=== PATIENT | female | born 1950 | race African-American/Black ===

== ENCOUNTER 2017-12-16 09:14 | Inpatient (IN) ==
[2017-12-16] MEDS ORDERED: ALUM/MAG/SIMETH/LIDO VISC 1:1 30 ML BOTTLE PO STA (10:38)
[2017-12-16 10:51] LABS: Basophils % 0.4 % (0.0-0.8); Eosinophils # 0.3 10*3/uL (0.0-0.87); Eosinophils % 4.3 % (0.00-10.9); Hematocrit 29.5 VOL% (35.7-47.0); Hemoglobin 8.8 GM/DL (12.0-16.0); Immature Granulocytes % 0.3 %; Immature Granulocytes Absolute 0.02 #; Lymphocytes % 26.2 % (21.3-54.2); Mean Corpuscular HGB Conc 29.8 GM/DL (32-36); Mean Corpuscular Hemoglobin 23 PG (27-34); Mean Corpuscular Volume 76.8 FL (87-102); Mean Platelet Volume 11.5 FL (9.6-12.0); Monocytes # 0.6 10*3/uL (0.11-0.8); Monocytes % 7.8 % (1.7-12.7); Neutrophils # 4.6 10*3/uL (1.4-7.4); Platelet Count 267 T/CUMM (130-400); Red Blood Count 3.84 MC/CUMM (3.8-5.5); Red Cell Distribution Width 15.3 % (9.3-17.3); White Blood Count 7.5 T/CUMM (4-12)
[2017-12-16 10:58] LABS: PT Patient Result 10.7 SECS; Partial Thromboplastin Time 28.7 SECS (0-40)
[2017-12-16 11:20] LABS: Alanine Aminotransferase 17 U/L (13-56); Albumin 3.1 G/DL (3.4-5.0); Alkaline Phosphatase 69 U/L (45-117); Aspartate Amino Transferase 20 U/L (0-37); Blood Urea Nitrogen 34 MG/DL (7-18); Calcium 10.3 MG/DL (8.5-10.1); Glucose 146 MG/DL (74-106); Osmolality,Calculated 285.7 MOS/KG (273-304); Potassium 4.4 MMOL/L (3.5-5.1); Sodium 138 MMOL/L (136-145); Total Protein 7.7 G/DL (6.4-8.3)
[2017-12-16 11:22] LABS: Troponin I Only 0.054 NG/ML (0.00-0.045)
[2017-12-16] MEDS ORDERED: FUROSEMIDE 40 MG/4 ML VIAL IV STA (12:19)
[2017-12-16] MEDS ORDERED: ASPIRIN 325 MG TABLET PO STA (12:19)
[2017-12-16] MEDS ORDERED: ENOXAPARIN 100 MG/ML SYRINGE SUBCUT STA (12:19)
[2017-12-16] MEDS ORDERED: ACETAMINOPHEN 325 MG TABLET PO PRN (12:34)
[2017-12-16] MEDS ORDERED: ONDANSETRON 4 MG/2 ML VIAL IV PRN (12:34)
[2017-12-16] MEDS ORDERED: TORSEMIDE 20 MG TABLET PO PRN (14:41)
[2017-12-16 15:20] LABS: Ferritin 133.6 ng/ml (8-252)
[2017-12-16] MEDS: GLIMEPIRIDE 4 MG TABLET PO SCH (16:29)
[2017-12-16] MEDS: PRAVASTATIN 40 MG TABLET PO SCH (16:29)
[2017-12-16] MEDS ORDERED: PANTOPRAZOLE 40 MG TABLET PO ONE (22:00)
[2017-12-16] MEDS: DOCUSATE SODIUM 100 MG CAPSULE PO SCH (22:18)
[2017-12-16] MEDS: ALLOPURINOL 100 MG TABLET PO SCH (22:18)
[2017-12-16] MEDS: ALUMINUM/MAGNES/SIMETH MAX STR 30 ML UDCUP PO PRN (22:18)
[2017-12-17 05:06] LABS: Basophils % 0.6 % (0.0-0.8); Eosinophils # 0.3 10*3/uL (0.0-0.87); Eosinophils % 4.7 % (0.00-10.9); Hematocrit 29.5 VOL% (35.7-47.0); Immature Granulocytes % 0.3 %; Immature Granulocytes Absolute 0.02 #; Lymphocytes # 2.6 10*3/uL (1.4-4.0); Lymphocytes % 39.8 % (21.3-54.2); Mean Corpuscular HGB Conc 30.5 GM/DL (32-36); Mean Corpuscular Hemoglobin 23 PG (27-34); Mean Corpuscular Volume 75.4 FL (87-102); Mean Platelet Volume 11.7 FL (9.6-12.0); Monocytes # 0.7 10*3/uL (0.11-0.8); Neutrophils # 2.9 10*3/uL (1.4-7.4); Neutrophils % 43.6 % (38.7-73.9); Platelet Count 256 T/CUMM (130-400); Red Blood Count 3.91 MC/CUMM (3.8-5.5); Red Cell Distribution Width 14.9 % (9.3-17.3); White Blood Count 6.6 T/CUMM (4-12)
[2017-12-17 05:37] LABS: Osmolality,Calculated 287.4 MOS/KG (273-304); Potassium 4.2 MMOL/L (3.5-5.1); Risk Ratio 2.54; VLDL CHOLESTEROL 19.8 MG/DL
[2017-12-17] MEDS: ALUMINUM/MAGNES/SIMETH MAX STR 30 ML UDCUP PO PRN (08:55)
[2017-12-17] MEDS: GLIMEPIRIDE 4 MG TABLET PO SCH ×2 (08:55→16:25)
[2017-12-17] MEDS: INDAPAMIDE 2.5 MG TABLET PO SCH (08:56)
[2017-12-17] MEDS: PIOGLITAZONE 15 MG TABLET PO SCH (08:56)
[2017-12-17] MEDS: sitaGLIPtin 25 MG TABLET PO SCH (08:57)
[2017-12-17] MEDS: VALSARTAN/HCTZ 80-12.5 MG TABLET PO SCH (08:57)
[2017-12-17] MEDS: DOCUSATE SODIUM 100 MG CAPSULE PO SCH ×2 (08:57→21:34)
[2017-12-17] MEDS: MULTIVITAMIN (CENTRUM) TABLET PO SCH (08:57)
[2017-12-17] MEDS: ALLOPURINOL 100 MG TABLET PO SCH ×2 (08:58→21:34)
[2017-12-17] MEDS: PANTOPRAZOLE 40 MG TABLET PO SCH (08:58)
[2017-12-17] MEDS: ASPIRIN EC 81 MG TABLET PO SCH (15:56)
[2017-12-17] MEDS: PRAVASTATIN 40 MG TABLET PO SCH (15:56)
[2017-12-17] MEDS: CARVEDILOL 6.25 MG TABLET PO SCH (21:34)
[2017-12-18] MEDS: PIOGLITAZONE 15 MG TABLET PO SCH (08:55)
[2017-12-18] MEDS: DOCUSATE SODIUM 100 MG CAPSULE PO SCH ×2 (08:56→23:58)
[2017-12-18] MEDS: sitaGLIPtin 25 MG TABLET PO SCH (08:56)
[2017-12-18] MEDS: PANTOPRAZOLE 40 MG TABLET PO SCH (08:56)
[2017-12-18] MEDS: VALSARTAN/HCTZ 80-12.5 MG TABLET PO SCH (08:56)
[2017-12-18] MEDS: INDAPAMIDE 2.5 MG TABLET PO SCH (08:57)
[2017-12-18] MEDS: ALLOPURINOL 100 MG TABLET PO SCH ×2 (08:57→23:57)
[2017-12-18] MEDS: GLIMEPIRIDE 4 MG TABLET PO SCH ×2 (08:57→16:35)
[2017-12-18] MEDS: MULTIVITAMIN (CENTRUM) TABLET PO SCH (08:57)
[2017-12-18] MEDS: ASPIRIN EC 81 MG TABLET PO SCH (08:57)
[2017-12-18] MEDS: CARVEDILOL 6.25 MG TABLET PO SCH ×2 (08:57→16:35)
[2017-12-18] MEDS ORDERED: POTASSIUM CHLORIDE RIDER 10 MEQ in PREMIX 1 EACH IV PRN (14:59)
[2017-12-18] MEDS ORDERED: MAGNESIUM SULF RIDER 2 GM in PREMIX 1 EACH IV PRN (14:59)
[2017-12-18] MEDS: PRAVASTATIN 40 MG TABLET PO SCH (16:35)
[2017-12-18 17:02] LABS: PT Patient Result 10.5 SECS
[2017-12-19] MEDS ORDERED: SODIUM CHLORIDE 0.45% 1,000 ML IV SCH (06:00)
[2017-12-19 06:21] LABS: Basophils % 0.5 % (0.0-0.8); Eosinophils # 0.3 10*3/uL (0.0-0.87); Eosinophils % 4.3 % (0.00-10.9); Hematocrit 29.5 VOL% (35.7-47.0); Immature Granulocytes % 0.4 %; Immature Granulocytes Absolute 0.03 #; Lymphocytes # 2.5 10*3/uL (1.4-4.0); Lymphocytes % 33.5 % (21.3-54.2); Mean Corpuscular HGB Conc 30.5 GM/DL (32-36); Mean Corpuscular Hemoglobin 23 PG (27-34); Mean Corpuscular Volume 75.4 FL (87-102); Mean Platelet Volume 11.4 FL (9.6-12.0); Monocytes # 0.7 10*3/uL (0.11-0.8); Monocytes % 9.9 % (1.7-12.7); Neutrophils # 3.8 10*3/uL (1.4-7.4); Neutrophils % 51.4 % (38.7-73.9); Platelet Count 268 T/CUMM (130-400); Red Blood Count 3.91 MC/CUMM (3.8-5.5); Red Cell Distribution Width 14.9 % (9.3-17.3); White Blood Count 7.4 T/CUMM (4-12)
[2017-12-19 06:44] LABS: Calcium 9.8 MG/DL (8.5-10.1); Osmolality,Calculated 281.7 MOS/KG (273-304); Potassium 4.2 MMOL/L (3.5-5.1)
[2017-12-19] MEDS ORDERED: HEPARIN/NACL 0.9% 2 UNITS/ML 1,000 ML IV ONE (06:44)
[2017-12-19] MEDS ORDERED: DIAZEPAM 5 MG TABLET PO ONE ×2 (07:00→08:00)
[2017-12-19] MEDS ORDERED: diphenhydrAMINE CAP 25 MG CAPSULE PO ONE ×2 (07:00→08:00)
[2017-12-19] MEDS ORDERED: NITROGLYCERIN DRIP 50 MG/250 ML BOTTLE IV ONE (07:18)
[2017-12-19] MEDS ORDERED: VERAPAMIL 5 MG/2 ML VIAL ONE (07:19)
[2017-12-19] MEDS ORDERED: MIDAZOLAM 2 MG/2 ML VIAL ONE ×2 (07:19→07:34)
[2017-12-19] MEDS ORDERED: fentaNYL 100 MCG/2 ML VIAL ONE (07:19)
[2017-12-19] MEDS ORDERED: diphenhydrAMINE 50 MG/1 ML VIAL ONE (07:35)
[2017-12-19] MEDS ORDERED: HEPARIN 5,000 UNIT/1 ML VIAL ONE (07:39)
[2017-12-19] MEDS: GLIMEPIRIDE 4 MG TABLET PO SCH ×2 (10:55→16:12)
[2017-12-19] MEDS: ALLOPURINOL 100 MG TABLET PO SCH (10:56)
[2017-12-19] MEDS: CARVEDILOL 6.25 MG TABLET PO SCH ×2 (10:56→16:12)
[2017-12-19] MEDS: sitaGLIPtin 25 MG TABLET PO SCH (10:56)
[2017-12-19] MEDS: ASPIRIN EC 81 MG TABLET PO SCH (10:56)
[2017-12-19] MEDS: INDAPAMIDE 2.5 MG TABLET PO SCH (10:56)
[2017-12-19] MEDS: PIOGLITAZONE 15 MG TABLET PO SCH (10:56)
[2017-12-19] MEDS: MULTIVITAMIN (CENTRUM) TABLET PO SCH (10:56)
[2017-12-19] MEDS: DOCUSATE SODIUM 100 MG CAPSULE PO SCH (10:57)
[2017-12-19] MEDS: VALSARTAN/HCTZ 80-12.5 MG TABLET PO SCH (10:57)
[2017-12-19] MEDS: PANTOPRAZOLE 40 MG TABLET PO SCH (10:57)
[2017-12-19 15:39] VITALS: BP 145/71
[2017-12-19] MEDS: PRAVASTATIN 40 MG TABLET PO SCH (16:12)
== END 2017-12-19 18:19 | disposition home or self-care (01) | DRG 286 ==
LOC: N.EDINP 09:14 → N.ED 09:14 → N.EDINP 13:41 → N.2E 13:58
PROVIDERS: ADMIT Family Medicine; ATTEND Family Medicine
PROC: CLCCHCL (ICD-10-PCS; 2017-12-19 07:45)

== ENCOUNTER 2021-12-09 14:26 | Observation (INO) ==
[2021-12-09] MEDS ORDERED: ASPIRIN 325 MG TABLET PO STA (15:14)
[2021-12-09] MEDS ORDERED: ONDANSETRON 4 MG/2 ML VIAL IV STA (15:14)
[2021-12-09] MEDS ORDERED: MORPHINE 2 MG/1 ML SYRINGE IV STA (15:14)
[2021-12-09] MEDS ORDERED: NITROGLYCERIN 2% OINT 1 INCH/GM PACK TOP STA (15:14)
[2021-12-09] MEDS ORDERED: ALUM/MAG/SIMETH/LIDO VISC 1:1 30 ML BOTTLE PO STA (15:14)
[2021-12-09 15:41] LABS: Albumin 3.7 G/DL (3.4-5.0); Bilirubin,Total 0.6 MG/DL (0.20-1.00); Calcium 10.6 MG/DL (8.5-10.1); Osmolality,Calculated 290.7 MOS/KG (273-304); Potassium 4.2 MMOL/L (3.5-5.1); Total Protein 7.9 G/DL (6.4-8.2)
[2021-12-09] MEDS ORDERED: NITROGLYCERIN SL 0.4 MG TABLET SL PRN (16:17)
[2021-12-09 16:23] LABS: Basophils % 0.2 % (0.0-0.8); Eosinophils % 0.1 % (0.00-10.9); Hematocrit 34.5 VOL% (35.7-47.0); Hemoglobin 10.4 GM/DL (12.0-16.0); Immature Granulocytes % 0.5 %; Immature Granulocytes Absolute 0.08 #; Mean Corpuscular HGB Conc 30.1 GM/DL (32-36); Monocytes # 1.1 10*3/uL (0.11-0.8); Monocytes % 7.1 % (1.7-12.7); Neutrophils % 79.1 % (38.7-73.9); Platelet Count 243 T/CUMM (130-400); Red Blood Count 4.54 MC/CUMM (3.8-5.5); Red Cell Distribution Width 15.9 % (9.3-17.3); White Blood Count 15.6 T/CUMM (4-12)
[2021-12-09] MEDS ORDERED: PANTOPRAZOLE 40 MG VIAL IV STA (16:24)
[2021-12-09 16:36] LABS: Barbiturates Screen,Urine Negative (Negative); Benzodiazepines Screen,Urine Negative (Negative); Cannabinoid Screen,Urine Negative (Negative); Opiate Screen,Urine Negative (Negative); Phencyclidine Screen,Urine Negative (Negative)
[2021-12-09 16:43] LABS: PT Patient Result 10.8 SECS (10.5-12.0); Partial Thromboplastin Time 24.1 SECS (23.8-32.1)
[2021-12-09] MEDS: carvediloL 12.5 MG TABLET PO SCH (17:06)
[2021-12-09] MEDS ORDERED: clonazePAM 0.5 MG TABLET PO PRN (17:07)
[2021-12-09] MEDS ORDERED: ONDANSETRON 4 MG/2 ML VIAL IV PRN (17:18)
[2021-12-09] MEDS: GLIMEPIRIDE 4 MG TABLET PO SCH (17:47)
[2021-12-09] MEDS ORDERED: ENOXAPARIN 40 MG/0.4 ML SYRINGE ONE (17:51)
[2021-12-09] MEDS: ENOXAPARIN 30 MG/0.3 ML SYRINGE SUBCUT SCH (18:04)
[2021-12-09] MEDS: allopurinoL 100 MG TABLET PO SCH (21:08)
[2021-12-09] MEDS: ATORVASTATIN 40 MG TABLET PO SCH (21:08)
[2021-12-09] MEDS: DOCUSATE SODIUM 100 MG CAPSULE PO SCH (21:08)
[2021-12-09] MEDS: hydrALAZINE 25 MG TABLET PO SCH (21:08)
[2021-12-09] MEDS: INSULIN GLARGINE 100 UNIT/ML SUBCUT SCH (22:45)
[2021-12-10 04:50] LABS: Basophils % 0.1 % (0.0-0.8); Eosinophils % 0.2 % (0.00-10.9); Hemoglobin 9.4 GM/DL (12.0-16.0); Immature Granulocytes % 0.3 %; Immature Granulocytes Absolute 0.04 #; Lymphocytes # 2.5 10*3/uL (1.4-4.0); Lymphocytes % 17.9 % (21.3-54.2); Mean Corpuscular HGB Conc 30.3 GM/DL (32-36); Mean Corpuscular Volume 75.2 FL (87-102); Mean Platelet Volume 11.9 FL (9.6-12.0); Monocytes # 1.6 10*3/uL (0.11-0.8); Monocytes % 11.6 % (1.7-12.7); Neutrophils % 69.9 % (38.7-73.9); Platelet Count 231 T/CUMM (130-400); Red Blood Count 4.12 MC/CUMM (3.8-5.5); Red Cell Distribution Width 15.3 % (9.3-17.3); White Blood Count 13.9 T/CUMM (4-12)
[2021-12-10 05:20] LABS: Calcium 10.4 MG/DL (8.5-10.1)
[2021-12-10] MEDS ORDERED: PANTOPRAZOLE 40 MG TABLET PO SCH ×2 (09:00)
[2021-12-10] MEDS: ASPIRIN CHEW 81 MG TABLET PO SCH (09:29)
[2021-12-10] MEDS: DOCUSATE SODIUM 100 MG CAPSULE PO SCH ×2 (09:29→20:51)
[2021-12-10] MEDS: carvediloL 12.5 MG TABLET PO SCH ×4 (09:29→17:06)
[2021-12-10] MEDS: hydrALAZINE 25 MG TABLET PO SCH ×4 (09:29→20:51)
[2021-12-10] MEDS: MULTIVITAMIN (CENTRUM) TABLET PO SCH (09:29)
[2021-12-10] MEDS: ISOSORBIDE MONONITRATE 30 MG TABLET PO SCH (09:30)
[2021-12-10] MEDS: allopurinoL 100 MG TABLET PO SCH ×2 (09:31→20:51)
[2021-12-10] MEDS: ASCORBIC ACID 500 MG TABLET PO SCH (09:31)
[2021-12-10] MEDS: ACETAMINOPHEN 325 MG TABLET PO PRN ×2 (09:31→20:52)
[2021-12-10] MEDS: PANTOPRAZOLE 40 MG TABLET PO SCH ×2 (09:32→20:51)
[2021-12-10] MEDS: GLIMEPIRIDE 4 MG TABLET PO SCH ×2 (09:32→16:33)
[2021-12-10] MEDS: INSULIN LISPRO 100 UNIT/ML SUBCUT SCH ×3 (12:18→23:02)
[2021-12-10 14:38] LABS: Urine Appearance Clear (Clear); Urine Color Yellow (Yellow)
[2021-12-10 14:39] LABS: Bilirubin,Urine Negative (Negative); Blood, Urine Trace mg/dL (Negative); Glucose,Urine (UA) >1000 mg/dL (Negative); Ketones,Urine Negative (Negative); Nitrite,Urine Negative (Negative); Protein,Urine 30 mg/dL (Negative); Urine Urobilinogen 0.2 eU/dL (<2.0)
[2021-12-10 14:44] LABS: Bacteria,Urine Occasional /HPF (Few); Mucus,Urine Occasional /LPF (Occasional); RBC,Urine 5 /HPF (0-4); Squamous Epithelial Cell,Urine Occasional /HPF (0-10)
[2021-12-10] MEDS: ENOXAPARIN 30 MG/0.3 ML SYRINGE SUBCUT SCH (17:39)
[2021-12-10] MEDS: ATORVASTATIN 40 MG TABLET PO SCH (20:51)
[2021-12-10] MEDS: INSULIN GLARGINE 100 UNIT/ML SUBCUT SCH (23:02)
[2021-12-11 04:42] LABS: Basophils % 0.3 % (0.0-0.8); Eosinophils # 0.2 10*3/uL (0.0-0.87); Eosinophils % 1.6 % (0.00-10.9); Hematocrit 30.2 VOL% (35.7-47.0); Hemoglobin 9.1 GM/DL (12.0-16.0); Immature Granulocytes % 0.4 %; Immature Granulocytes Absolute 0.04 #; Lymphocytes # 2.1 10*3/uL (1.4-4.0); Lymphocytes % 19.6 % (21.3-54.2); Mean Corpuscular HGB Conc 30.1 GM/DL (32-36); Mean Corpuscular Volume 75.3 FL (87-102); Mean Platelet Volume 12.6 FL (9.6-12.0); Monocytes # 1.2 10*3/uL (0.11-0.8); Monocytes % 10.6 % (1.7-12.7); Neutrophils % 67.5 % (38.7-73.9); Platelet Count 229 T/CUMM (130-400); Red Blood Count 4.01 MC/CUMM (3.8-5.5); Red Cell Distribution Width 15.1 % (9.3-17.3); White Blood Count 10.8 T/CUMM (4-12)
[2021-12-11 05:12] LABS: Calcium 10.7 MG/DL (8.5-10.1); Osmolality,Calculated 279.4 MOS/KG (273-304)
[2021-12-11 05:23] LABS: Albumin 2.7 G/DL (3.4-5.0); Bilirubin,Total 0.5 MG/DL (0.20-1.00); Calcium 10.7 MG/DL (8.5-10.1); Osmolality,Calculated 279.4 MOS/KG (273-304); Potassium 3.9 MMOL/L (3.5-5.1); Total Protein 7.6 G/DL (6.4-8.2)
[2021-12-11] MEDS: carvediloL 12.5 MG TABLET PO SCH (08:12)
[2021-12-11] MEDS: GLIMEPIRIDE 4 MG TABLET PO SCH (08:12)
[2021-12-11] MEDS: INSULIN LISPRO 100 UNIT/ML SUBCUT SCH ×2 (08:13→11:45)
[2021-12-11 08:38] VITALS: BP 112/66
[2021-12-11] MEDS: MULTIVITAMIN (CENTRUM) TABLET PO SCH (09:14)
[2021-12-11] MEDS: DOCUSATE SODIUM 100 MG CAPSULE PO SCH (09:14)
[2021-12-11] MEDS: PANTOPRAZOLE 40 MG TABLET PO SCH (09:14)
[2021-12-11] MEDS: ASCORBIC ACID 500 MG TABLET PO SCH (09:14)
[2021-12-11] MEDS: ISOSORBIDE MONONITRATE 30 MG TABLET PO SCH (09:14)
[2021-12-11] MEDS: allopurinoL 100 MG TABLET PO SCH (09:14)
[2021-12-11] MEDS: ASPIRIN CHEW 81 MG TABLET PO SCH (09:14)
[2021-12-11] MEDS: hydrALAZINE 25 MG TABLET PO SCH (09:15)
== END 2021-12-11 11:42 | disposition home or self-care (01) ==
LOC: N.EDINP 14:26 → N.ED 14:26 → N.TELEN 18:55
PROVIDERS: ADMIT Family Medicine; ATTEND Family Medicine

== ENCOUNTER 2022-01-29 13:57 | Observation (INO) ==
[2022-01-29 14:25] LABS: Basophils # 0.1 10*3/uL (0.0-0.2); Basophils % 0.3 % (0.0-0.8); Eosinophils # 0.2 10*3/uL (0.0-0.87); Eosinophils % 1.3 % (0.00-10.9); Hematocrit 32.5 VOL% (35.7-47.0); Hemoglobin 10.1 GM/DL (12.0-16.0); Immature Granulocytes % 0.5 %; Immature Granulocytes Absolute 0.08 #; Lymphocytes # 2.1 10*3/uL (1.4-4.0); Lymphocytes % 11.9 % (21.3-54.2); Mean Corpuscular HGB Conc 31.1 GM/DL (32-36); Mean Corpuscular Volume 71.6 FL (87-102); Mean Platelet Volume 10.7 FL (9.6-12.0); Monocytes # 1.9 10*3/uL (0.11-0.8); Monocytes % 10.8 % (1.7-12.7); Neutrophils % 75.2 % (38.7-73.9); Platelet Count 341 T/CUMM (130-400); Red Blood Count 4.54 MC/CUMM (3.8-5.5); Red Cell Distribution Width 17.1 % (9.3-17.3); White Blood Count 17.5 T/CUMM (4-12)
[2022-01-29 14:45] LABS: Albumin 3.2 G/DL (3.4-5.0); Bilirubin,Total 0.4 MG/DL (0.20-1.00); Osmolality,Calculated 284.2 MOS/KG (273-304); Potassium 4.3 MMOL/L (3.5-5.1); Total Protein 7.3 G/DL (6.4-8.2)
[2022-01-29] MEDS ORDERED: MORPHINE 10 MG/1 ML VIAL IV STA (15:44)
[2022-01-29] MEDS ORDERED: ONDANSETRON 4 MG/2 ML VIAL IV STA (15:44)
[2022-01-29] MEDS ORDERED: MORPHINE 2 MG/1 ML SYRINGE ONE (15:49)
[2022-01-29] MEDS ORDERED: ENOXAPARIN 30 MG/0.3 ML SYRINGE SUBCUT STA (17:19)
[2022-01-29] MEDS ORDERED: ONDANSETRON 4 MG/2 ML VIAL IV PRN (17:19)
[2022-01-29] MEDS ORDERED: GLUCAGON 1 MG VIAL IM PRN (17:19)
[2022-01-29] MEDS ORDERED: DEXTROSE 10% 250 ML BAG IV PRN (17:22)
[2022-01-29] MEDS: SODIUM CHLORIDE 0.9% 1,000 ML IV SCH (17:50)
[2022-01-29] MEDS: INSULIN LISPRO 100 UNIT/ML SUBCUT SCH ×2 (17:55→21:26)
[2022-01-29] MEDS: DOCUSATE SODIUM 100 MG CAPSULE PO SCH (21:25)
[2022-01-30] MEDS: SODIUM CHLORIDE 0.9% 1,000 ML IV SCH ×2 (03:36→09:42)
[2022-01-30 05:47] LABS: Calcium 10.4 MG/DL (8.5-10.1); Osmolality,Calculated 295.3 MOS/KG (273-304); Potassium 4.2 MMOL/L (3.5-5.1)
[2022-01-30] MEDS: carvediloL 12.5 MG TABLET PO SCH ×2 (09:35→17:49)
[2022-01-30] MEDS: DOCUSATE SODIUM 100 MG CAPSULE PO SCH ×2 (09:35→22:58)
[2022-01-30] MEDS: ASPIRIN CHEW 81 MG TABLET PO SCH (09:35)
[2022-01-30] MEDS: hydrALAZINE 25 MG TABLET PO SCH ×3 (09:35→22:59)
[2022-01-30] MEDS: ISOSORBIDE MONONITRATE 30 MG TABLET PO SCH (09:35)
[2022-01-30] MEDS: PANTOPRAZOLE 40 MG TABLET PO SCH (09:35)
[2022-01-30] MEDS: INSULIN LISPRO 100 UNIT/ML SUBCUT SCH ×4 (09:38→23:08)
[2022-01-30] MEDS: NON-FORMULARY MEDICATION (Empagliflozin [Jardiance] 10 mg Tablet) PO SCH (10:39)
[2022-01-30] MEDS ORDERED: cefTRIAXone 1,000 MG in SODIUM CHLORIDE 0.9% 100 ML IV SCH (15:00)
[2022-01-30] MEDS: ACETAMINOPHEN 325 MG TABLET PO PRN ×2 (16:08→22:59)
[2022-01-30] MEDS ORDERED: INSULIN GLARGINE 100 UNIT/ML SUBCUT SCH (21:00)
[2022-01-30] MEDS ORDERED: ATORVASTATIN 40 MG TABLET PO SCH (21:00)
[2022-01-31 05:16] LABS: Basophils % 0.2 % (0.0-0.8); Eosinophils # 0.2 10*3/uL (0.0-0.87); Eosinophils % 1.6 % (0.00-10.9); Hematocrit 27.7 VOL% (35.7-47.0); Hemoglobin 8.6 GM/DL (12.0-16.0); Immature Granulocytes % 0.6 %; Immature Granulocytes Absolute 0.07 #; Lymphocytes # 1.8 10*3/uL (1.4-4.0); Lymphocytes % 15.7 % (21.3-54.2); Mean Corpuscular Volume 73.5 FL (87-102); Monocytes # 1.5 10*3/uL (0.11-0.8); Monocytes % 12.9 % (1.7-12.7); Red Blood Count 3.77 MC/CUMM (3.8-5.5)
[2022-01-31 05:18] LABS: Platelet Count 233 T/CUMM (130-400); White Blood Count 11.7 T/CUMM (4-12)
[2022-01-31 05:29] LABS: Calcium 10.4 MG/DL (8.5-10.1); Potassium 3.9 MMOL/L (3.5-5.1)
[2022-01-31] MEDS: hydrALAZINE 25 MG TABLET PO SCH (08:29)
[2022-01-31] MEDS: DOCUSATE SODIUM 100 MG CAPSULE PO SCH (08:30)
[2022-01-31] MEDS: ASPIRIN CHEW 81 MG TABLET PO SCH (08:30)
[2022-01-31] MEDS: carvediloL 12.5 MG TABLET PO SCH (08:30)
[2022-01-31] MEDS: ISOSORBIDE MONONITRATE 30 MG TABLET PO SCH (08:30)
[2022-01-31] MEDS: PANTOPRAZOLE 40 MG TABLET PO SCH (08:30)
[2022-01-31] MEDS: INSULIN LISPRO 100 UNIT/ML SUBCUT SCH (08:31)
[2022-01-31] MEDS: NON-FORMULARY MEDICATION (Empagliflozin [Jardiance] 10 mg Tablet) PO SCH (08:38)
[2022-01-31 11:07] VITALS: BP 139/77
== END 2022-01-31 11:18 | disposition home or self-care (01) ==
LOC: N.TELEN 13:57 → N.ED 13:57 → N.TELEN 17:30
PROVIDERS: ADMIT Family Medicine; ATTEND Family Medicine